=== PATIENT | male | born 1970 | race Caucasian/White ===

== ENCOUNTER → 2020-02-02 07:35 | Outpatient (BNVA) | payer OTHER, SELFPAY | PROVIDERS: Visit Provider Nurse Practitioner | DX: F31.81 Bipolar II disorder (principal) | CPT/HCPCS: 99213 ==

== ENCOUNTER → 2020-10-04 08:08 | Outpatient (BNVA) | payer OTHER, SELFPAY | PROVIDERS: Visit Provider Nurse Practitioner | DX: F31.81 Bipolar II disorder (principal) | CPT/HCPCS: 99213 ==

== ENCOUNTER 2024-07-31 06:40 | Day surgery (SDC) | payer OTHER, SELFPAY ==
--- NOTE | 2024-07-31 05:17 | P.HPUD_ITS ---
Surgery/Procedure H&P Update DATE OF PROCEDURE: July 31, 2024 DATE H&P PERFORMED: 07/09/24 H&P UPDATE INFORMATION: I have reviewed H&P completed within last 30 days, I have examined patient prior to procedure, No changes to prior documentation and H&P is in [facility] on date indicated PLANNED PROCEDURE: Operation Date: 07/31/24 07:40 Proposed Procedures p Colonoscopy 15794, G0121, Z12.11(Not Applicable) - Antoine Khan MD
[2024-07-31 06:50] VITALS: BMI 28.2
[2024-07-31] MEDS: sodium chloride 0.9% 1,000 ML 30 ML IV (06:52)
[2024-07-31 07:00] VITALS: BP 111/77; PULSE 84; RESP 18; TEMP 36.1; O2SAT 97
--- NOTE | 2024-07-31 07:00 | P.ANESASSM_ITS ---
Pre-Anesthetic Assessment Height/Weight: Height 1.83 m Weight 94.347 kg Preop Diagnosis: screening Operation Date: 07/31/24 07:40 Proposed Procedures p Colonoscopy 77029, G0121, Z12.11(Not Applicable) - Antoine Khan MD Familial anesthetic complications: none Was Beta Marques taken within 24 hours: N/A Was Clonidine taken within 24 hours: N/A Last intake: Intake Last Liquid Date 07/30/24 Last Liquid Time 22:00 Last Solid Date 07/29/24 Last Solid Time 18:30 Social No alcohol and No tobacco Exam alert, oriented x 3, clear to auscultation bilaterally and regular rate & rhythm Airway Submandibular: within normal limits Cervical ROM: within normal limits Mallampati: Class II Dentition: full History/ROS No significant history except as noted and No significant complaints Pulmonary None reported CV/HEM None reported None reported Hepatic None reported GI None reported Metabolic None reported Musc/skel None reported Neuropsych Anxiety Anesthetic Plan ASA status: 2 Anesthesia: MAC Risk of > 500 ml blood loss (7ml/kg in children): No Medications/Allergies Home Medications Medication Instructions Recorded Confirmed Last Taken Type lamotrigine 150 mg tablet 300 mg (2 x 150 mg) PO DAILY #60 11/07/23 07/29/24 07/30/24 Rx (Lamictal) tabs Allergies Allergy/AdvReac Type Severity Reaction Status Date / Time No Known Allergies Allergy Verified 07/31/24 06:57 Current Medications Generic Name Dose Route Start Last Admin Trade Name Freq PRN Reason Stop Dose Admin Sodium Chloride 1,000 mls @ 30 mls/hr 07/31/24 06:45 07/31/24 06:52 Sodium Chloride 0.9% IV 08/01/24 06:44 30 mls/hr .Q24H ROSSANA Administration PFSH Anesthesia Medical History History of basal cell carcinoma Bipolar II disorder Surgical History History of Mohs micrographic surgery for skin cancer Family History Father CAD (coronary artery disease) Denies family history of Diabetes Cancer Hypertension Stroke Social History Smoking and tobacco/nicotine status: never used tobacco/nicotine Alcohol intake: never Substance/Drug Use: never Household members: none Number of children: 0 Current occupational status: employed Current occupation: [employer] Pets and animals: Yes Pets & animals: dog(s) Pets & animal details: jay - mini aussie Leisure activites: other Leisure activities details: yard work Special rose needs: No Agree to transfusion: Yes Data Anesthesia Cardiac Studies: No Data to Display
[2024-07-31 07:47] VITALS: BP 108/65; PULSE 66; RESP 18; TEMP 36.4; O2SAT 95
[2024-07-31 08:13] VITALS: BP 124/83; PULSE 58; RESP 16; O2SAT 96
--- NOTE | 2024-07-31 08:18 | ANE.PACU2 ---
Inpatient post-anesthesia follow up: Airway intact: Yes Vital signs: Temperature 97.5 F Pulse Rate 58 Respiratory Rate 16 Blood Pressure 124/83 Pulse Oximetry 96 Oxygen Delivery Me thod Room Air Oxygen Flow Rate Fraction of Inspir ed Oxygen Hydration adequate: Yes Nausea and vomiting: No Pain level: 1 Mental status: Baseline
== END 2024-07-31 08:18 | disposition home or self-care (01) ==
PROVIDERS: PCP Family Medicine; Visit Provider Surgery
PROC: 0DJD8ZZ Inspection of Lower Intestinal Tract, Via Natural or Artificial Opening Endoscopic (ICD-10-PCS; CPT 45378; principal; 2024-07-31 07:40)
DX: Z12.11 Encounter for screening for malignant neoplasm of colon (principal); K63.5 Polyp of colon; Z85.828 Personal history of other malignant neoplasm of skin
CPT/HCPCS: 45380; 88305; J2704; J7030

== ENCOUNTER → 2024-10-17 07:34 | Outpatient (BNVA) | payer OTHER, SELFPAY | PROVIDERS: PCP Family Medicine; Visit Provider Family Medicine | DX: Z00.00 Encounter for general adult medical examination without abnormal findings (principal) | CPT/HCPCS: 80053; 80061 ==